=== PATIENT | male | born 1990 | race Caucasian/White ===

== ENCOUNTER → 2022-06-03 | Outpatient (CLI) | payer OTHER ==
--- NOTE | 2022-06-03 12:00 | XR ---
EXAMINATION TYPE: XR chest 2V DATE OF EXAM: 06/03/2022 COMPARISON: None INDICATION: Dyspnea TECHNIQUE: Frontal and lateral views of the chest are obtained. FINDINGS: The heart size is normal. The pulmonary vasculature is normal. The lungs are clear. Hiatal hernia is not clearly appreciated on the current exam IMPRESSION: 1. No acute pulmonary process.
== END | disposition home or self-care (01) ==
LOC: RADXRMAIN 11:39
PROVIDERS: ATTEND Surgery Plastic and Reconstructive Surgery
DX: R06.00 Dyspnea, unspecified (principal)
CPT/HCPCS: 71046; 93005

== ENCOUNTER 2022-06-25 08:44 | Day surgery (SDC) | payer OTHER ==
[2022-06-23 09:05] VITALS: BMI 44.6
[~2022-06-25 08:44] MED LIST: HEPARIN SODIUM,PORCINE/PF 5,000 UNIT/0.5 ML SYRINGE SQ PRN; ceFAZolin 3 GM in SODIUM CHLORIDE 0.9% 100 ML IVPB PRN
[2022-06-25] MEDS ORDERED: ACETAMINOPHEN TAB 500 MG TAB PO PRN (09:07)
[2022-06-25] MEDS ORDERED: GABAPENTIN 300 MG CAP PO STA (09:07)
--- NOTE | 2022-06-25 09:13 | P.GSHP ---
History of Present Illness H&P Date: 06/25/22 CHIEF COMPLAINT: Ventral hernia HISTORY OF PRESENT ILLNESS: The patient is a 31-year-old male presents with a recurrent history of swelling and pain along the abdomen from a hernia of the abdomen. He has past history of incisional hernia repair. Symptoms have been present for over 6 months. Now he presents for surgical intervention. PAST MEDICAL HISTORY: Please see list. PAST SURGICAL HISTORY: Please see list. MEDICATIONS: Please see list. ALLERGIES: Please see list. SOCIAL HISTORY: No illicit drug use FAMILY HISTORY: No reports of Crohn disease or ulcerative colitis. REVIEW OF ORGAN SYSTEMS: CONSTITUTIONAL: No reports of fevers or chills. No reports of weight loss despite prior attempts. GI: Denies any blood in stools or constipation. PHYSICAL EXAM: VITAL SIGNS: Stable GENERAL: Well-developed pleasant male in no acute distress. HEENT: No scleral icterus. Extraocular movements grossly intact. Moist buccal mucosa. NECK: Supple without lymphadenopathy. CHEST: Unlabored respirations. Equal bilateral excursions. CARDIOVASCULAR: Regular rate and rhythm. Distal 2+ pulses. ABDOMEN: Soft, nondistended. Palpable defect of the abdomen. No peritoneal signs. MUSCULOSKELETAL: No clubbing, cyanosis, or edema. ASSESSMENT: 1. Ventral hernia, recurrent PLAN: 1. Recommend proceeding with robotic ventral hernia repair with mesh. 2. Benefits and risks of surgical intervention was discussed including possibility of open technique. 3. DVT prophylaxis. 4. Antibiotic prophylaxis. 5. Non narcotic pain management including abdominal wall block described 6. Blood sugar glucose described. 7. Weight loss management described. Past Medical History Past Medical History: Asthma, COPD, GERD/Reflux, Hypertension Additional Past Medical History / Comment(s): no RX for b/p, abdominal hernia, states "has intermittent approx 3 episodes per week then stops for a mos or so when falling asleep awakes abruptly and heart races",possible COPD History of Any Multi-Drug Resistant Organisms: None Reported Past Surgical History: Hernia Repair Additional Past Surgical History / Comment(s): umbilical hernia,EGD Past Anesthesia/Blood Transfusion Reactions: No Reported Reaction Smoking Status: Former smoker - Past Family History Mother Family Medical History: Deep Vein Thrombosis (DVT) Medications and Allergies Home Medications Medication Instructions Recorded Confirmed Type Albuterol Inhaler [Ventolin Hfa 1 - 2 puff INHALATION Q6H PRN 06/23/22 06/23/22 History Inhaler] Fluticasone Propion/Salmeterol 2 puff INHALATION BID 06/23/22 06/23/22 History [Advair Hfa 115-21 Mcg Inhaler] Ibuprofen [Advil] 400 - 600 mg PO Q8HR PRN 06/23/22 06/23/22 History Pantoprazole Sodium 40 mg PO QAM 06/23/22 06/23/22 History Sucralfate [Carafate] 1 gm PO BID 06/23/22 06/23/22 History Vortioxetine Hydrobromide 20 mg PO QAM 06/23/22 06/23/22 History [Trintellix] Allergies Allergy/AdvReac Type Severity Reaction Status Date / Time No Known Allergies Allergy Verified 06/23/22 08:47
[2022-06-25] MEDS ORDERED: MELOXICAM 7.5 MG TAB PO SCH (09:15)
[2022-06-25] MEDS ORDERED: LACTATED RINGERS 1,000 ML IV ONE ×3 (09:42→17:56)
[2022-06-25] MEDS ORDERED: LIDOCAINE 1% (10MG/ML) FOR IV START INTRADERMA ONE (09:42)
[2022-06-25] MEDS ORDERED: ONDANSETRON 4 MG/2 ML VIAL ONE ×2 (09:55→15:28)
[2022-06-25 10:00] LABS: Basophils # (A) 0.1 k/uL (0-0.2); Basophils % (A) 1 %; Eosinophils # (A) 0.1 k/uL (0-0.7); Eosinophils % (A) 2 %; HCT 43.7 % (39.0-53.0); HGB 14.9 gm/dL (13.0-17.5); Lymphocytes # (A) 1.5 k/uL (1.0-4.8); Lymphocytes % (A) 26 %; MCH 28.6 pg (25.0-35.0); MCHC 34.2 g/dL (31.0-37.0); MCV 83.7 fL (80.0-100.0); Mean Platelet Volume 7.5; Monocytes # (A) 0.4 k/uL (0-1.0); Monocytes % (A) 6 %; Neutrophils # (A) 3.6 k/uL (1.3-7.7); Neutrophils % (A) 63 %; Platelet Count 220 k/uL (150-450); RBC 5.22 m/uL (4.30-5.90); RDW 12.8 % (11.5-15.5); WBC 5.7 k/uL (3.8-10.6)
[2022-06-25] MEDS ORDERED: DEXAMETHASONE SOD PHOSPHATE 4 MG/ML 1 ML VIAL IV ONE (10:00)
[2022-06-25 10:06] LABS: ALT 35 U/L (4-49); AST 27 U/L (17-59); African American GFR (CKD) >90 (>60 ml/min/1.73 sqM); Albumin 4.4 g/dL (3.5-5.0); Alkaline Phosphatase 64 U/L (38-126); Anion Gap 10 mmol/L; Blood Urea Nitrogen 14 mg/dL (9-20); Calcium 8.7 mg/dL (8.4-10.2); Carbon Dioxide 24 mmol/L (22-30); Chloride 107 mmol/L (98-107); Glucose 97 mg/dL (74-99); Non-African American GFR(CKD) >90 (>60 ml/min/1.73 sqM); Potassium 4.1 mmol/L (3.5-5.1); Sodium 141 mmol/L (137-145); Total Bilirubin 0.9 mg/dL (0.2-1.3); Total Protein 6.8 g/dL (6.3-8.2)
[2022-06-25] MEDS ORDERED: BUPIVACAIN-EPI 0.25%-1:200,000 30 ML VIAL SQ ONE (11:38)
[2022-06-25] MEDS ORDERED: fentaNYL (PF) 50 MCG/ML 2 ML AMP ONE (11:49)
[2022-06-25] MEDS ORDERED: ROCURONIUM 10 MG/ML (5 ML VIAL) IV ONE (11:49)
[2022-06-25] MEDS ORDERED: HYDROmorphone (PF) 1 MG/ML ONE (11:49)
[2022-06-25] MEDS ORDERED: KETOROLAC 15 MG/ML 1 ML VIAL ONE (11:49)
[2022-06-25] MEDS ORDERED: PHENYLEPHRINE-0.9% NACL SYG 1,000 MCG/10 ML SYRINGE ONE (11:49)
[2022-06-25] MEDS ORDERED: KETAMINE 10 MG/ML 20 ML VIAL ONE (11:49)
[2022-06-25] MEDS ORDERED: NEOSTIGMINE 1 MG/ML 10 ML VIAL ONE (11:49)
[2022-06-25] MEDS ORDERED: LIDOCAINE 2% INJ 20 MG/ML (2 ML VIAL) ONE (11:49)
[2022-06-25] MEDS ORDERED: LIDOCAINE 4% LTA KIT (4 ML) TOPICAL ONE (11:49)
[2022-06-25] MEDS ORDERED: MIDAZOLAM 2 MG/2 ML VIAL ONE (11:49)
[2022-06-25] MEDS ORDERED: SUCCINYLCHOLINE CHLORIDE 200 MG/10 ML VIAL IV ONE (11:49)
[2022-06-25] MEDS ORDERED: GLYCOPYRROLATE 0.2 MG/ML 2 ML VIAL ONE (11:49)
[2022-06-25] MEDS ORDERED: PROPOFOL 10 MG/ML 20 ML VIAL IV ONE (11:49)
[2022-06-25 14:11] VITALS: TEMP 96.9
--- NOTE | 2022-06-25 14:18 | P.OP ---
Date of Procedure: 06/25/22 Description of Procedure: SURGEON: AUDELIA MERCADO MD PREOPERATIVE DIAGNOSES: 1. Recurrent incisional ventral hernia 2. Depressive disorder 3. Morbid obesity due to excess calories, BMI 44.5 4. Chronic obstructive pulmonary disease 5. Gastroesophageal reflux disease 6. Generalized anxiety disorder POSTOPERATIVE DIAGNOSES: 1. Recurrent incisional ventral hernia, 10 x 3 cm 2. Depressive disorder 3. Morbid obesity due to excess calories, BMI 44.5 4. Chronic obstructive pulmonary disease 5. Gastroesophageal reflux disease 6. Generalized anxiety disorder OPERATION: 1. Robotic-assisted da Kedar Xi laparoscopic repair of recurrent incarcerated epigastric ventral hernia with mesh, ventralight ST mesh 15 x 20 cm 2. Excision and removal of mesh/foreign body Anesthesia: GETA, regional, local Estimated Blood Loss (ml): 5 Pathology: 1. Incarcerated upper midline ventral hernia mesh COMPLICATIONS: None. Operative Findings: 1. Upper midline recurrent epigastric ventral hernia defect 10 x 3 cm 2. Fascia repaired using #1 V-lock suture INDICATIONS: The patient is a 31-year-old male who presents with a personal history of recurrent abdominal wall hernias. Surgical intervention with laparoscopic versus robotic and open techniques were reviewed. Placement of mesh was also reviewed. Benefits and risks were thoroughly described. Informed consent was obtained. DESCRIPTION OF PROCEDURE: The patient was brought into the operating room and laid in supine position. After general induction, the abdomen had been prepped and draped in standard sterile fashion. Ioban draping was also placed. Prior to incision, a timeout protocol was confirmed with surgical team regarding the patient's name including procedures to be performed. The robot was primed prior to the procedure. A field block using local anesthetic was placed along hernia site including the proposed port sites. Initial incision was made with an #11 blade along the left upper quadrant. A 0 degree 5 mm laparoscopic trocar entry was performed and insufflated. Three 8 mm ports were placed along the left lateral abdominal wall under direct localization after exchanging the 5-mm for an 8 mm port. Placements of the ports were 15 cm from the target anatomy and 10 cm apart. An accessory 12 mm port was placed at the left upper quadrant for exchange of mesh including sutures. The [employer] robot was previously primed, prepped and draped then docked from the right side of the patient onto the left side of the patient. I then sat at the robot [employer] console where working arms of the robot including Bovie cautery connected to robotic scissors, needle distribution driver, and graspers placed by the studio assistant. Incarcerated omental contents were found along the upper midline defect including umbilicus. The defects were reduced with preperitoneal fat including the falciform ligament at the upper midline defect. Two distinct fascial defects were found: Upper midline defect 4 x 3 cm and umbilical hernia defect 2 x 3 cm. Combined size of defect 10 x 3 cm of the fascia was measured. The incarcerated contents were reduced as the peritoneal fat was cleaned from the abdominal wall. Next, hemostasis was checked with cautery. The hernia defects were oversewn using #1 nonabsorbable V-lock suture with fascial imbrication x 2. Next, ventralight ST mesh 11.4 cm was placed with the rough side towards the abdominal wall as to cover the epigastric including umbilical defect. 2-0 VLOC 12 inch sutures were used to fixate the mesh. A final endoscopic imaging was obtained. All instruments and pneumoperitoneum were evacuated from the abdominal cavity. The da Kedar Xi robot was undocked from the patient. I re-scrubbed into the case for closure of incisions. The fascia of the 12-mm port was probed and closed using Tee Caicedo 0 Vicryl. The incisions were reapproximated using 4-0 Monocryl in an interrupted subcuticular fashion. Liquid glue was applied to the skin after cleansing the skin with normal saline and dilute hydrogen peroxide. An abdominal binder was placed. An umbilical dressing was placed prior. At the end of the procedure, needle, sponge, and instrument count had been verified correct by surgical rn. The patient was taken to the postanesthesia care unit in stable condition. Plan - Discharge Summary Discharge Rx Participant: No New Discharge Prescriptions: New Cyclobenzaprine [Flexeril] 10 mg PO TID #30 tab Ibuprofen [Motrin] 600 mg PO Q8HR PRN #30 tab PRN Reason: Pain Acetaminophen Tab [Tylenol Tab] 1,000 mg PO Q6HR PRN #30 tablet PRN Reason: Pain Continue Sucralfate [Carafate] 1 gm PO BID Vortioxetine Hydrobromide [Trintellix] 20 mg PO QAM Pantoprazole Sodium 40 mg PO QAM Fluticasone Propion/Salmeterol [Advair Hfa 115-21 Mcg Inhaler] 2 puff INHALATION BID Albuterol Inhaler [Ventolin Hfa Inhaler] 1 - 2 puff INHALATION Q6H PRN PRN Reason: sob Discontinued Ibuprofen [Advil] 400 - 600 mg PO Q8HR PRN PRN Reason: Pain Discharge Medication List Albuterol Inhaler [Ventolin Hfa Inhaler] 1 - 2 puff INHALATION Q6H PRN 06/23/22 [History] Fluticasone Propion/Salmeterol [Advair Hfa 115-21 Mcg Inhaler] 2 puff INHALATION BID 06/23/22 [History] Pantoprazole Sodium 40 mg PO QAM 06/23/22 [History] Sucralfate [Carafate] 1 gm PO BID 06/23/22 [History] Vortioxetine Hydrobromide [Trintellix] 20 mg PO QAM 06/23/22 [History] Acetaminophen Tab [Tylenol Tab] 1,000 mg PO Q6HR PRN #30 tablet 06/25/22 [Rx] Cyclobenzaprine [Flexeril] 10 mg PO TID #30 tab 06/25/22 [Rx] Ibuprofen [Motrin] 600 mg PO Q8HR PRN #30 tab 06/25/22 [Rx] Follow up Appointment(s)/Referral(s): Audelia Mercado MD [STAFF PHYSICIAN] - 06/30/22 Patient Instructions/Handouts: Abdominal Binder (DC), Laparoscopic Herniorrhaphy (IP), *Surgery [facility] - Managing Your Pain After Surgery Without Opioids Activity/Diet/Wound Care/Special Instructions: No lifting for 4 pounds in 4 weeks, Jul 25 Using antibacterial soap. May shower. No bathtub soaks for 2 weeks, Jul 09 Wear abdominal binder daily for comfort except for showering. Use ice along incisions for today to prevent swelling. Discharge Disposition: HOME SELF-CARE
[2022-06-25] MEDS ORDERED: IBUPROFEN 200 MG TAB PO ONE (16:34)
[2022-06-25 18:23] VITALS: BP 115/76; PULSE 65; RESP 15
== END 2022-06-25 18:54 | disposition home or self-care (01) ==
LOC: OR 08:44
PROVIDERS: ATTEND Surgery Plastic and Reconstructive Surgery
DX: K43.2 Incisional hernia without obstruction or gangrene (principal); F32.A Depression, unspecified; J44.9 Chronic obstructive pulmonary disease, unspecified; K21.9 Gastro-esophageal reflux disease without esophagitis; F41.1 Generalized anxiety disorder; E66.01 Morbid (severe) obesity due to excess calories; Z68.41 Body mass index [BMI] 40.0-44.9, adult; Z79.51 Long term (current) use of inhaled steroids; Z87.891 Personal history of nicotine dependence
CPT/HCPCS: 80053; 85025; 88302; 49653; C1781; J2250; J0330; J1100; J2710; J0690; J2405; J3010; J1170; J1885; J2370; J2704; J1644; J2001